=== PATIENT | female | born 1965 | race Caucasian/White ===

== ENCOUNTER 2017-04-20 23:22 | Emergency (ER) | payer BC ==
[2017-04-20] MEDS ORDERED: Acetaminophen/HYDROcodone 325-5 MG Tab PO ONE (23:23)
[2017-04-20] MEDS ORDERED: Cyclobenzaprine 10 MG Tab PO ONE (23:23)
[2017-04-20 23:28] VITALS: BP 146/95
[2017-04-20] MEDS ORDERED: Ketorolac 30 MG/ML SDV IVPUSH ONE (23:40)
[2017-04-20] MEDS ORDERED: methylPREDNISolone Sodium Succinate 125 MG/2 ML SDV IVPUSH STA (23:40)
[2017-04-20] MEDS ORDERED: Ondansetron 4 MG/2 ML SDV IVPUSH STA (23:40)
[2017-04-20] MEDS ORDERED: Morphine 4 MG/ML Syringe IVPUSH ONE (23:42)
[2017-04-20] MEDS ORDERED: HYDROmorphone 1 MG/ML Syringe IVPUSH ONE (23:44)
--- NOTE | 2017-04-20 23:54 | EDM.PDOC ---
ED HPI GENERAL MEDICAL PROBLEM - General Chief Complaint: Back Pain or Injury Stated Complaint: back pain Time Seen by Provider: 04/20/17 23:36 Source of Information: Reports: Patient History Limitations: Reports: No Limitations - History of Present Illness INITIAL COMMENTS - FREE TEXT/NARRATIVE: This patient is a 51 year old female that presents to the ER. Patient reports that she does have chronic back pain. Patient reports her back has been hurting for the past couple of weeks and she does see a chiropractor. Patient reports though she was at her fridge today and her back locked up. She reports that she had severe pain in her left lower back. She reports the pain comes and goes like spasms. Patient reports that the pain goes into her left buttock. Patient reports that mild numbness in her butt. Patient reports it feels like sciatica. Patient denies silva, dizziness, n, v, d, f, cp, soa, abd pain, urinary/bowel changes, urinary/bowel incontinence. She is ambulatory. Pulses +2, cap refill < 2 sec. Sensory/Motor function intact. Neurovascular intact. Patient denies any numbness or tingling around rectum to indicate saddle parathesia. 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) Lower Back Pain Score (Numeric/FACES): 8 - Related Data Allergies Allergy/AdvReac Type Severity Reaction Status Date / Time tape Allergy Blisters Uncoded 04/20/17 23:23 Home Meds: Home Meds Esomeprazole Magnesium [Nexium] 20 mg PO DAILY 11/29/15 [History] Cyclobenzaprine [Flexeril] 5 mg PO Q8H PRN 04/20/17 [History] Escitalopram [Lexapro] 10 mg PO DAILY 04/20/17 [History] Ibuprofen 600 mg PO Q6H 04/20/17 [History] Past Medical History 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: GERD 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: Psychiatric History: Reports: Anxiety, Depression - Past Surgical History GI Surgical History: Reports: Cholecystectomy Female Surgical History: Reports: Section, Hysterectomy Social & Family History - Family History Family Medical History: Noncontributory - Tobacco Use Smoking Status *Q: Never Smoker Second Hand Smoke Exposure: No - Caffeine Use Caffeine Use: Reports: Coffee, Soda - Recreational Drug Use Recreational Drug Use: No - Living Situation & Occupation Living situation: Reports: Occupation: Employed ED ROS GENERAL - Review of Systems Review Of Systems: See Below Constitutional: Reports: No Symptoms HEENT: Reports: No Symptoms Respiratory: Reports: No Symptoms Cardiovascular: Reports: No Symptoms Endocrine: Reports: No Symptoms GI/Abdominal: Reports: No Symptoms : Reports: No Symptoms Musculoskeletal: Reports: Back Pain Skin: Reports: No Symptoms Neurological: Reports: No Symptoms Psychiatric: Reports: No Symptoms Hematologic/Lymphatic: Reports: No Symptoms Immunologic: Reports: No Symptoms ED EXAM,LOWER BACK PAIN/INJURY - Physical Exam Exam: See Below Exam Limited By: No Limitations General Appearance: Alert, WD/WN, No Apparent Distress, Other (in pain) Eye Exam: Bilateral Eye: Normal Inspection, PERRL Ears: Normal External Exam, Normal Canal, Hearing Grossly Normal, Normal TMs Nose: Normal Inspection, Normal Mucosa, No Blood Throat/Mouth: Normal Inspection, Normal Lips, Normal Teeth, Normal Gums, Normal Oropharynx, Normal Voice, No Airway Compromise Head: Atraumatic, Normocephalic Neck: Normal Inspection, Supple, Non-Tender, Full Range of Motion Respiratory/Chest: No Respiratory Distress, Lungs Clear, Normal Breath Sounds, No Accessory Muscle Use Cardiovascular: Normal Peripheral Pulses, Regular Rate, Rhythm, No Edema, No Gallop, No JVD, No Murmur, No Rub Back Exam: Normal Inspection, Full Range of Motion, Decreased Range of Motion ( due to pain), Muscle Spasm (left lower), Paraspinal Tenderness (left lower). No : CVA Tenderness (L), CVA Tenderness (R), Vertebral Tenderness Extremities: Normal Inspection, Normal Range of Motion, Non-Tender, No Pedal Edema, Normal Capillary Refill Neurological: Alert, Normal Mood/Affect, Normal Gait, No Motor/Sensory Deficits , Oriented x 3 Psychiatric: Normal Affect, Normal Mood Skin Exam: Warm, Dry, Intact, Normal Color, No Rash Lymphatic: No Adenopathy Course - Vital Signs Last Recorded V/S: Last Vital Signs Temp 98.8 F 04/20/17 23:24 Pulse 80 04/20/17 23:24 Resp 18 04/20/17 23:24 BP 146/95 H 04/20/17 23:24 Pulse Ox 97 04/20/17 23:24 - Orders/Labs/Meds Meds: Medications Discontinued Medications Generic Name Dose Route Start Last Admin Trade Name Ernestine PRN Reason Stop Dose Admin Hydrocodone Bitart/Acetaminophen 3 packet 04/21/17 00:16 Take Home: Acetaminophen/Hydrocod, 2 Tab Pack PO 04/21/17 00:17 ONETIME ONE Cyclobenzaprine HCl 1 packet 04/21/17 00:16 Take Home: Cyclobenzaprine 10 Mg, 4 Tab Pack PO 04/21/17 00:17 ONETIME ONE Hydromorphone HCl 0.5 mg 04/20/17 23:44 04/20/17 23:54 Dilaudid IVPUSH 04/20/17 23:45 0.5 mg ONETIME ONE Administration Ketorolac Tromethamine 30 mg 04/20/17 23:40 04/20/17 23:53 Toradol IVPUSH 04/20/17 23:41 30 mg ONETIME ONE Administration Methylprednisolone Sodium Succinate 125 mg 04/20/17 23:40 04/20/17 23:53 Solu-Medrol IVPUSH 04/20/17 23:41 125 mg NOW STA Administration Morphine Sulfate 4 mg 04/20/17 23:42 04/20/17 23:55 Morphine IVPUSH 04/20/17 23:43 Not Given ONETIME ONE Ondansetron HCl 4 mg 04/20/17 23:40 04/20/17 23:53 Zofran IVPUSH 04/20/17 23:41 4 mg NOW STA Administration - Re-Assessments/Exams Free Text/Narrative Re-Assessment/Exam: 04/21/17 00:22 Patient reports she is feeling much better after medications. Departure - Departure Time of Disposition: 00:17 Disposition: Home, Self-Care 01 Condition: Good Clinical Impression: Sciatica Qualifiers: Laterality: left Qualified Code(s): M54.32 - Sciatica, left side Lumbar pain Qualifiers: Chronicity: acute Back pain laterality: left Sciatica presence: with sciatica Sciatica laterality: sciatica of left side Qualified Code(s): M54.42 - Lumbago with sciatica, left side - Discharge Information Instructions: Back Pain, Adult, [id number] Referrals: Cheryl Staton PA [Primary Care Provider] - Forms: ED Department Discharge Additional Instructions: Followup with your primary care provider Return to the ER for worsening of condition or any emergent concerns Go home and rest No heavy lifting Rupert 5/325mg 1-2 pills every 4-6 hours as needed for pain. Take Home #6. #24 no refill Prednisone 20mg 1 pill twice day for 5 days #10 no refill Flexeril 10mg 1 pill three times a day as needed for spasm #4 take home. #21 no refill - Assessment/Plan Plan: PLEASE SEE RN NOTE FOR PFSH.
[2017-04-21] MEDS ORDERED: Take Home: Acetaminophen/HYDROcodone 325-5 MG, 2 Tab Pack PO ONE (00:16)
[2017-04-21] MEDS ORDERED: Take Home: Cyclobenzaprine 10 MG Tab, 4 Tab Pack PO ONE (00:16)
== END 2017-04-21 00:30 | disposition home or self-care (01) ==
LOC: CC.ED 23:22
DX: M54.42 Lumbago with sciatica, left side (principal); F41.9 Anxiety disorder, unspecified; F32.9 Major depressive disorder, single episode, unspecified; Z90.49 Acquired absence of other specified parts of digestive tract; Z90.710 Acquired absence of both cervix and uterus; Z79.899 Other long term (current) drug therapy
CPT/HCPCS: 96374; 96375; 99283; J1170; J1885; J2405; J2930; A9270-GY

== ENCOUNTER 2019-12-08 20:22 | Emergency (ER) | payer BC ==
[2019-12-08 20:28] VITALS: PULSE 83
[2019-12-08] MEDS ORDERED: Lidocaine 1% 20 ML MDV INJECT ONE (20:39)
[2019-12-08] MEDS ORDERED: Bacitracin/Neomycin/Polymyxin B Oint 0.9 GM U/D Packet TOP ONE (20:39)
--- NOTE | 2019-12-08 20:51 | EDM.PDOC ---
ED HPI GENERAL MEDICAL PROBLEM - General Chief Complaint: Laceration Stated Complaint: laceration Time Seen by Provider: 12/08/19 20:35 Source of Information: Reports: Patient History Limitations: Reports: No Limitations - History of Present Illness INITIAL COMMENTS - FREE TEXT/NARRATIVE: was getting her male house cat out of the way with her foot and a female cat was near her and the cat bit her on the right foot in multiple areas. Has 2 across the top of her foot 3.6 cm and 2.8 and one on the lateral side that is 0.5 and all are gapping open. She has multiple scratch reeder to the lower leg and across the top of her foot. She has several puncture reeder across the top and bottom of her foot. No other injuries noted. 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: Psychiatric History: Reports: Anxiety, Depression - Past Surgical History GI Surgical History: Reports: Cholecystectomy Female Surgical History: Reports: Section, Hysterectomy Social & Family History - Family History Family Medical History: Noncontributory - Caffeine Use Caffeine Use: Reports: Coffee, Soda - Living Situation & Occupation Living situation: Reports: Occupation: Employed ED ROS GENERAL - Review of Systems Review Of Systems: See Below Constitutional: Reports: No Symptoms Skin: Reports: Wound (right foot and leg.) ED EXAM, SKIN/RASH Exam: See Below Exam Limited By: No Limitations General Appearance: Alert, WD/WN, Mild Distress Extremities: No Pedal Edema Neurological: Alert, Oriented Skin: Warm, Dry Location, Skin: Lower Extremity, Right (see HPI) Associated features: No: Warmth, Tenderness, Swelling, Induration ED SKIN PROCEDURES - Laceration/Wound Repair Right Lower Foot Appearance: Subcutaneous, Irregular Distal NVT: Neuro & Vascular Intact Anesthetic Type: Local Local Anesthesia - Lidocaine (Xylocaine): 1% Plain Local Anesthetic Volume: 4cc Skin Prep: Other (sure clens) Exploration/Debridement/Repair: In a Bloodless Field Closed with: Sutures Lac/Wound length In cm: 3.6 Suture Size: 4-0 # of Sutures: 5 Suture Type: Nylon, Interrupted Right Foot Appearance: Subcutaneous Distal NVT: Neuro & Vascular Intact Anesthetic Type: Local Local Anesthesia - Lidocaine (Xylocaine): 1% Plain Local Anesthetic Volume: 4cc Skin Prep: Other (sure clens) Exploration/Debridement/Repair: Wound Explored Closed with: Sutures Lac/Wound length In cm: 2.8 Suture Size: 4-0 # of Sutures: 3 Suture Type: Nylon, Interrupted, Simple Course - Vital Signs Last Recorded V/S: Last Vital Signs Temp 99.7 F 12/08/19 20:25 Pulse 83 12/08/19 20:25 Resp 18 12/08/19 20:25 BP 126/69 12/08/19 21:11 Pulse Ox 99 12/08/19 20:25 - Orders/Labs/Meds Meds: Medications Discontinued Medications Generic Name Dose Route Start Last Admin Trade Name Freq PRN Reason Stop Dose Admin Lidocaine HCl 20 ml 12/08/19 20:39 12/08/19 20:45 Xylocaine 1% INJECT 12/08/19 20:40 20 ml ONETIME ONE Administration Neomycin/Polymyxin/Bacitracin 1 each 12/08/19 20:39 12/08/19 21:05 Triple Antibiotic Oint TOP 12/08/19 20:40 1 each ONETIME ONE Administration - Re-Assessments/Exams Free Text/Narrative Re-Assessment/Exam: 12/08/19 21:20 she has augentin 875 at home that she didn't use for dental pain. Departure - Departure Time of Disposition: 21:03 Disposition: Home, Self-Care 01 Condition: Good Clinical Impression: Cat bite of foot, Cat scratch of right lower leg - Discharge Information *PRESCRIPTION DRUG MONITORING PROGRAM REVIEWED*: Not Applicable *COPY OF PRESCRIPTION DRUG MONITORING REPORT IN PATIENT APARNA: Not Applicable Instructions: Animal Bite, Adult, [id number], Laceration Care, Adult, Easy-to -Read Referrals: PCP,None [Primary Care Provider] - Forms: ED Department Discharge Additional Instructions: keep clean and dry change dressing daily with antibiotic ointment and dressing suture removal in 10 days. If you did not get your tetanus booster you need to get one- call public health. Needs to be within the last 5 years. Augmentin -take the ones that you have at home twice a day for 10 days. If any signs of infection call clinic for appt. Sepsis Event Note - Evaluation Sepsis Screening Result: No Definite Risk - Focused Exam Vital Signs: Vital Signs Temp Pulse Resp BP BP Pulse Ox 12/08/19 21:11 126/69 12/08/19 20:25 99.7 F 83 18 153/70 H 99 Date Exam was Performed: 12/08/19 Time Exam was Performed: 21:18 - Problem List & Annotations (1) Cat bite of foot SNOMED Code(s): 729018459 Code(s): S91.359A - OPEN BITE, UNSPECIFIED FOOT, INITIAL ENCOUNTER; W55.01XA - BITTEN BY CAT, INITIAL ENCOUNTER Status: Acute Priority: High Current Visit: Yes Qualifiers: Encounter type: initial encounter Laterality: right Qualified Code(s): S91.351A - Open bite, right foot, initial encounter; W55.01XA - Bitten by cat, initial encounter (2) Cat scratch of right lower leg SNOMED Code(s): 425015814 Code(s): S80.811A - ABRASION, RIGHT LOWER LEG, INITIAL ENCOUNTER; W55.03XA - SCRATCHED BY CAT, INITIAL ENCOUNTER Status: Acute Priority: High Current Visit: Yes Qualifiers: Encounter type: initial encounter Qualified Code(s): S80.811A - Abrasion, right lower leg, initial encounter; W55.03XA - Scratched by cat, initial encounter - Problem List Review Problem List Initiated/Reviewed/Updated: Yes
[2019-12-08 21:14] VITALS: BP 126/69
== END 2019-12-08 21:25 | disposition home or self-care (01) ==
LOC: CC.ED 20:22
DX: S91.351A Open bite, right foot, initial encounter (principal); S80.871A Other superficial bite, right lower leg, initial encounter; F41.9 Anxiety disorder, unspecified; F32.9 Major depressive disorder, single episode, unspecified; K21.9 Gastro-esophageal reflux disease without esophagitis; Z79.899 Other long term (current) drug therapy; W55.01XA Bitten by cat, initial encounter
CPT/HCPCS: 12002; 99283-25; J2001